=== PATIENT | male | born 1960 | race Caucasian/White ===

== ENCOUNTER → 2017-09-21 | Emergency (ER) | payer OTHER ==
[~2017-09-21] VITALS: Ht 172.7 cm; Wt 90.7 kg
[~2017-09-21] MED LIST: AMOX1TAB12 PO; CIPRO500 MG PO; METRONIDAZOLE500 MG PO; PROTONIX40 MG PO
== END | disposition home or self-care (01) ==
LOC: ER 12:14
DX: K57.92 Diverticulitis of intestine, part unspecified, without perforation or abscess without bleeding (principal); R10.32 Left lower quadrant pain

== ENCOUNTER 2019-09-04 10:20 | Day surgery (SDC) | payer OTHER | END 2019-09-04 14:20 | disposition home or self-care (01) | LOC: AMB-ENDOS 10:20 | DX: K57.30 Diverticulosis of large intestine without perforation or abscess without bleeding (principal); K64.8 Other hemorrhoids ==